=== PATIENT | female | born 1995 | race Caucasian/White ===

== ENCOUNTER 2018-01-08 18:07 | Emergency (ER) | payer BC, SELFPAY ==
[2018-01-08 18:16] VITALS: BP 126/82; PULSE 74; RESP 15; TEMP 36.4; O2SAT 100; BMI 23.0
--- NOTE | 2018-01-08 18:17 | ED_ITS ---
HPI - Chest Pain General Chief Complaint: Chest Pain Stated Complaint: HEART HURTING Time Seen by Provider: 01/08/18 18:16 Source: patient Limitations: no limitations History of Present Illness HPI narrative: Otherwise healthy 22-year-old female here for evaluation of chest pain. Patient states that approximately 1.5 hr prior to arrival here in the emergency department she had a sudden onset of midsternal chest pain. Stated was sharp. Came on suddenly. States that she felt like she had to go to the bathroom (urinate) which she did do after the onset of the pain. She states that during that time she felt like the pain ?took over my body ?she states that she never lost consciousness. Was never lightheaded. Did have some shortness of breath during that time. No palpitations. Walked out to the living room where her friend was and told her friend that she needed to come to the emergency department. Patient states that during her ride to the emergency department her symptoms resolved. Related Data Allergies Allergy/AdvReac Type Severity Reaction Status Date / Time amoxicillin [AMOXICILLIN] Allergy Mild RASH Unverified 12/09/17 11:58 Penicillins [PENICILLINS] Allergy Unknown Unverified 12/09/17 11:58 Review of Systems Constitutional Denies chills, Denies fever(s), Denies lethargy and Denies weakness Cardiovascular Reports chest pain, Denies diaphoresis, Denies syncope, Denies rapid heart rate , Denies edema, Denies irregular heart rhythm, Denies lightheadedness, Denies palpitations, Reports dyspnea, Denies dyspnea on exertion and Denies orthopnea Respiratory Denies cough, Reports pain on inspiration, Denies pain with cough, Reports dyspnea, Denies dyspnea on exertion and Denies wheezing Gastrointestinal Gastrointestinal: Denies abdominal pain, Denies change in bowel habits, Denies diarrhea, Denies nausea and Denies vomiting Musculoskeletal Denies back pain, Denies muscle weakness, Denies numbness and Denies tingling Integumentary/Breasts Denies pruritus, Denies erythema, Denies rash and Denies wounds Neurologic Denies syncope, Denies numbness, Denies tingling and Denies weakness Endocrine Denies palpitations Hematologic/Lymphatic Denies easy bruising Allergic/Immunologic Denies wheezing COUNTS INCLUDE 234 BEDS AT THE [facility] Social History Smoking Status: Never smoker Exam Const General: cooperative and well developed Nutritional Appearance: well nourished Orientation: alert, awake, oriented x3 and not confused Chest Chest: normal inspection of the chest and No rash Other: Patient with reproducible chest pain lower sternum left side between the ribs. Improves that she moved laterally. Non-existent as you moved to the right. No pain superior and inferior to this point Resp Effort & Inspection: normal respiratory effort, able to speak in complete sentences, no respiratory distress and no use of accessory muscles Auscultation: clear to auscultation bilaterally, no rales, no rhonchi and no wheezes Cardio Rate: regular rate Rhythm: regular rhythm Heart Sounds: no click, no gallops, no murmurs and no rubs Pulses: normal peripheral pulses GI Inspection: non-distended Palpation: soft, no hepatosplenomegaly, No guarding, No pulsatile mass and No tender Auscultation: normal bowel sounds Skin General: no rashes or lesions noted, No jaundice and No petechiae Neuro General: alert, oriented x3, gait normal and no focal motor deficits Speech: speech normal Motor: strength 5/5 throughout Sensory Exam: no sensory deficits noted Extrem General: full ROM, no clubbing, cyanosis or edema, no pedal edema and no calf tenderness MDM - Chest Pain MDM Narrative Medical decision making narrative: EKG unremarkable. Chest x-ray unremarkable. I was able to reproduce the pain that brought her here to the emergency department by palpation of her anterior chest. This was at her lower left sternal border in between the lower ribs that attached here. Pain improves as you move superior inferior to the right at this point. Also improved that she moved more laterally. Her symptoms are not consistent with ACS. Not consistent with PE. Will hold on further workup for now. I suspect that she had a spasm of the intercostal muscles. I discussed this with the patient. Friends and family were at bedside. She expressed understanding. She was given return precautions. Imaging Data Chest x-ray: Radiologist's impression: PROCEDURE: XR CHEST 2V INDICATIONS: 22 year-old female with chest pain. TECHNIQUE: 2 views of the chest were acquired. COMPARISON: [facility], , ABDOMEN ACUTE SERIES, 04/22/2007, 1:04. FINDINGS: Surgical changes and devices: Left upper quadrant abdominal surgical clips are again noted. Lungs and pleura: No pleural effusions or pneumothorax. Lungs are clear. Mediastinum: Mediastinal contours are normal. Heart size is normal. Bones and chest wall: No suspicious bony abnormalities. Soft tissues appear unremarkable. IMPRESSION: No acute cardiopulmonary disease. Dictated by: El Kennedy M.D. on 01/08/2018 at 18:44 ECG Data Attestation: I personally reviewed and interpreted this ECG as follows: Prior ECG tracings: not available for review Interpretation: Time 1811 hr Sinus rhythm Ventricular rate 80 for Normal axis Normal intervals Normal QRS Normal QTC No ST T wave changes Course Orders Ordered: ED Orders 01/08/18 18:17 XR chest 2V Stat 01/08/18 18:18 EKG-12 Lead Stat Last Vital Signs Temp 97.5 F L 01/08/18 18:16 Pulse 74 01/08/18 18:16 Resp 15 01/08/18 18:16 BP 126/82 H 01/08/18 18:16 Pulse Ox 100 01/08/18 18:16 Discharge Plan Departure Patient Disposition: Home, Self-Care Clinical Impression: Anterior chest wall pain Instructions: DI for Atypical Chest Pain Activity Restrictions/Additional Instructions: Recommend that you contact your primary care doctor for a follow-up. Return to the emergency department for any new or worsening symptoms
[2018-01-08 19:00] VITALS: BP 126/79; PULSE 71; RESP 14; O2SAT 99
[2018-01-08 19:41] VITALS: BP 122/82; PULSE 70; RESP 17; O2SAT 100
== END 2018-01-08 19:42 | disposition home or self-care (01) ==
PROVIDERS: Emergency Provider Emergency Medicine
DX: R07.89 Other chest pain (principal)
CPT/HCPCS: 36591; 71046; 93005; 99282; 99284

== ENCOUNTER → 2019-09-15 13:38 | Outpatient (CLI) | payer BC, SELFPAY ==
[2019-09-15 15:30] LABS: Appearance Urine UA SL CLOUDY; Bilirubin Urine UA NEGATIVE (NEGATIVE); Color Urine UA YELLOW; Glucose Urine UA NEGATIVE (Negative); Ketones Urine UA TRACE (NEGATIVE); Leukocyte Esterase Urine UA 1+ (NEGATIVE); Nitrite Urine UA NEGATIVE (Negative); Occult Blood Urine UA NEGATIVE (Negative); Protein Urine UA NEGATIVE (Negative); Specific Gravity Urine UA 1.025 (1.000-1.035); Urobilinogen Urine UA 0.2 E.U./dL (0.2)
[2019-09-15 15:38] LABS: Add Manual Diff / Slide Review NO; Bacteria Urine Many (>30); Basophils Absolute Auto 100 /uL (0-100); Basophils Percent Auto 0.6 % (0-2); Culture Indicated Urine Cult Not Indicated; Eosinophils Absolute Auto 100 /uL (0-450); Eosinophils Percent Auto 0.9 % (2-4); Hematocrit 40.9 % (36-46); Hemoglobin 13.9 g/dL (12.0-16.0); Lymphocytes Absolute Auto 1700 /uL (1100-4500); Lymphocytes Percent Auto 12.9 % (25-40); Mean Corpuscular HGB Conc 33.9 % (30-36); Mean Corpuscular Hemoglobin 31.3 PG (26-34); Mean Corpuscular Volume 92.3 fL (80-100); Monocytes Absolute Auto 1000 /uL (0-900); Monocytes Percent Auto 7.8 % (3-14); Neutrophils Absolute Auto 10000 /uL (1500-7000); Neutrophils Percent Auto 77.8 % (50-75); Platelet Count 288 X10^3/uL (150-400); RBC Urine 0-1/HPF (0-5/HPF); Red Blood Cell Count 4.43 X10^6/uL (4.0-5.2); Red Cell Distribution Width 13.9 % (11.6-14.8); Squamous Epithelial Cell Urine 1-5 /HPF (0-5/HPF); Transitional Epi Cells Urine 1-5/HPF (0-5/HPF); Urine Comments CX ALREADY ORDERED; WBC Urine 10-30/HPF (0-5/HPF); White Blood Cell Count 12.9 X10^3/uL (4.5-11.0); pH Urine UA 5.5 (4.5-8.0)
[2019-09-15 16:12] LABS: Rubella Antibody IgG 25.4 IU/mL (>15)
[2019-09-15 16:19] LABS: Hepatitis B Surface Antigen NEGATIVE s/c (NEGATIVE)
[2019-09-15 16:28] LABS: HIV 1 & 2 Ab/Ag 4th Gen Combo NEGATIVE (NEGATIVE)
[2019-09-15 16:42] LABS: Hep C Virus Ab w/Reflex Quant NEGATIVE s/c (NEGATIVE)
[2019-09-17 20:38] LABS: RPR Screen Nonreactive (Nonreactive)
== END ==
PROVIDERS: Visit Provider Specialist
DX: Z34.01 Encounter for supervision of normal first pregnancy, first trimester (principal)
CPT/HCPCS: 36415; 80055; 81003; 81015; 86787; 86803; 86850; 86900; 86901; 87077; 87086; 87186; 87389

== ENCOUNTER → 2019-11-18 08:19 | Outpatient (CLI) | payer BC, OTHER, MEDICAID, SELFPAY ==
[2019-11-22 02:12] LABS: AFP, Serum 32.6 ng/mL (.); Calc Gestational Age Ultrasound (.); Estriol, Free 2.35 ng/mL (.); Inhibin A, Dimeric 163.14 pg/mL (.); Inhibin A, MoM 0.94 (.); Maternal Ethnicity Caucasian (.); Maternal Weight 142 lbs (.); Number of Fetuses No (.); OSBR Risk 1 IN 10000 (.); Results Report (.); Test Results *Screen Negative* (.); hCG, MoM 0.47 (.); hCG, Serum 13033 mIU/mL (.)
== END ==
PROVIDERS: PCP Specialist; Referring Provider Obstetrics & Gynecology; Visit Provider Obstetrics & Gynecology
DX: Z34.02 Encounter for supervision of normal first pregnancy, second trimester (principal); Z3A.18 18 weeks gestation of pregnancy
CPT/HCPCS: 36415; 82105; 82677; 84702; 86336

== ENCOUNTER → 2019-11-29 14:07 | Outpatient (CLI) | payer BC, OTHER, MEDICAID, SELFPAY ==
--- NOTE | 2019-11-29 14:08 | DI.US.S_ITS ---
PROCEDURE: US OB >= 14 WEEKS FETUS INDICATIONS: ANATOMY OUTSIDE/PRIOR DATING DATA: Last menstrual period (LMP): 07/11/19. LMP-based estimated date of delivery (MARTHA): 04/17/20. First dating scan (date and location): 09/23/19. Estimated date of delivery (MARTHA) from first dating scan: 04/13/20. TECHNIQUE: Real-time scanning was performed of the fetus, with image documentation and biometric measurements. Endovaginal scanning: Not performed COMPARISON: None. FINDINGS: General: A single living intrauterine gestation is present. Presentation: Breech Placenta: Placental position is anterior, without previa. Amniotic fluid index: 18.1 cm, normal range is 5-24 cm. heart rate: 145 beats per minute. Maternal cervical canal: 3.1 cm long. Normal lower limit is 2.5 cm. biometrics: Biparietal diameter: 4.6 cm, 19 weeks 6 days Head circumference: 17.9 cm, 20 weeks, 2 days Abdominal circumference: 16 cm, 21 weeks, one day Femur length: 3.1 cm, 19 weeks, 5 days Estimated gestational age from initial scan: 20 weeks, 4 days. Composite gestational age from present scan: 20 weeks, 2 days Estimated weight and percentile: 354 g, 38% Measurement variability for biometric dating: +/- 7 days from 14 weeks to 15 weeks 6 days gestation, +/- 10 days from 16 weeks to 21 weeks 6 days gestation, +/- 2 weeks from 22 weeks to 27 weeks 6 days gestation, +/- 3 weeks for 28 weeks gestation or later. weight reference: 4500 g or EFW >90/95% is considered macrosomia or large for gestational age. EFW <10% is small for gestational age. EFW 5% or less is considered intra-uterine growth restriction. Anatomic survey: Neuro: Ventricles are non-dilated at less than 10 mm. Cisterna magna is normal at 3-11 mm. Cerebellum is normal in size and morphology. Nuchal skin fold: Normal at less than 6 mm between 14-21 weeks gestational age. Face: Nose and lips, facial profile are normal. Spine: No evidence for spina bifida. Heart: 4-chambered heart is present, with normal ventricular outflow tracts. Diaphragm: Diaphragm is intact. Stomach: Left-sided stomach is present. Kidneys: No hydronephrosis. Normal is less than 5 mm in 2nd trimester, less than 7 mm in 3rd trimester. Cord: 3-vessel cord has orthotopic insertion. Bladder: Normal in size. Extremities: All 4 extremities identified. IMPRESSION: 1. Single live intrauterine with fetus in breech presentation. Normal growth. Normal amount of amniotic fluid. 2. Normal anatomic survey. Dictated by: Marbin Latif M.D. on 11/29/2019 at 15:49 Approved by: Marbin Latif M.D. on 11/29/2019 at 16:24
== END ==
PROVIDERS: Referring Provider Specialist; Visit Provider Specialist
DX: Z34.02 Encounter for supervision of normal first pregnancy, second trimester (principal); Z3A.20 20 weeks gestation of pregnancy
CPT/HCPCS: 76811

== ENCOUNTER → 2020-01-04 14:17 | Outpatient (CLI) | payer BC, OTHER, MEDICAID, SELFPAY | PROVIDERS: Visit Provider Specialist | DX: Z34.02 Encounter for supervision of normal first pregnancy, second trimester (principal) | CPT/HCPCS: 87086 ==

== ENCOUNTER → 2020-01-04 14:27 | Outpatient (CLI) | payer BC, OTHER, MEDICAID, SELFPAY ==
[2020-01-04 17:37] LABS: GTT (PREG) 1 Hour PP 50gm Dose 154 mg/dL (76-139)
== END ==
PROVIDERS: Referring Provider Specialist; Visit Provider Specialist
DX: O26.899 Other specified pregnancy related conditions, unspecified trimester (principal); Z67.91 Unspecified blood type, Rh negative
CPT/HCPCS: 36415; 82950; 85014; 85018; 86850; 87086

== ENCOUNTER → 2020-01-16 08:27 | Outpatient (CLI) | payer BC, OTHER, MEDICAID, SELFPAY ==
[2020-01-16 09:55] LABS: Glucose Fasting Gestational 82 mg/dL (76-95)
[2020-01-16 11:27] LABS: Glucose 2 Hour Gest 108 mg/dL (76-155)
[2020-01-16 11:52] LABS: Glucose Tol Interp,Gestational INTERPRETATION
[2020-01-16 12:19] LABS: Glucose 3 Hour Gest 115 mg/dL (76-140)
[2020-01-16 16:53] LABS: Glucose 1 Hour Gest 134 mg/dL (76-180)
== END ==
PROVIDERS: PCP Specialist; Referring Provider Specialist; Visit Provider Specialist
DX: Z34.02 Encounter for supervision of normal first pregnancy, second trimester (principal); Z3A.25 25 weeks gestation of pregnancy
CPT/HCPCS: 36415; 82951; 82952

== ENCOUNTER → 2020-03-01 11:46 | Outpatient (CLI) | payer BC, OTHER, MEDICAID, SELFPAY ==
[2020-03-01 13:14] LABS: BUN Creatinine Ratio 13.3 (6-22); Blood Urea Nitrogen 8 mg/dL (7-17); Estimated Glomerular Filt Rate > 60.0 mL/min (>60)
== END ==
PROVIDERS: PCP Specialist; Referring Provider Specialist; Visit Provider Specialist
DX: Z90.5 Acquired absence of kidney (principal)
CPT/HCPCS: 36415; 82565; 84520

== ENCOUNTER → 2020-03-21 15:00 | Outpatient (CLI) | payer BC, OTHER, MEDICAID, SELFPAY ==
[2020-03-22 11:35] LABS: Strep Grp B PCR NEG for Grp B Strep
== END ==
PROVIDERS: PCP Specialist; Visit Provider Specialist
DX: Z34.03 Encounter for supervision of normal first pregnancy, third trimester (principal); Z3A.36 36 weeks gestation of pregnancy
CPT/HCPCS: 87653

== ENCOUNTER → 2020-03-28 11:15 | Outpatient (CLI) | payer BC, OTHER, MEDICAID, SELFPAY | PROVIDERS: PCP Specialist; Visit Provider Specialist | DX: Z34.03 Encounter for supervision of normal first pregnancy, third trimester (principal) | CPT/HCPCS: 87077; 87086 ==

== ENCOUNTER 2020-04-11 00:19 | Inpatient (IN) | payer BC, OTHER, MEDICAID, SELFPAY ==
[2020-04-11] MEDS: LACTATED RINGERS 1,000 ML 100 ML IV ×2 (00:40→02:30)
[2020-04-11] MEDS: FENT 2MCG/ML BUPIV 0.125% EPI 200 MCG/100 ML PLAST..BAG 12 MCG EPIDURAL (01:30)
[2020-04-11 02:05] LABS: Add Manual Diff / Slide Review NO; Basophils Absolute Auto 100 /uL (0-100); Basophils Percent Auto 1.1 % (0-2); Eosinophils Absolute Auto 100 /uL (0-450); Eosinophils Percent Auto 1.1 % (2-4); Hematocrit 37.7 % (36-46); Hemoglobin 12.7 g/dL (12.0-16.0); Lymphocytes Absolute Auto 2300 /uL (1100-4500); Lymphocytes Percent Auto 18.4 % (25-40); Mean Corpuscular HGB Conc 33.7 % (30-36); Mean Corpuscular Hemoglobin 31.7 PG (26-34); Mean Corpuscular Volume 94.1 fL (80-100); Monocytes Absolute Auto 1000 /uL (0-900); Monocytes Percent Auto 8.1 % (3-14); Neutrophils Absolute Auto 8700 /uL (1500-7000); Neutrophils Percent Auto 71.3 % (50-75); Platelet Count 249 X10^3/uL (150-400); White Blood Cell Count 12.2 X10^3/uL (4.5-11.0)
[2020-04-11 02:48] LABS: COVID19 -Nasal RAPID Negative (Negative)
[2020-04-11 02:51] VITALS: BP 141/91
--- NOTE | 2020-04-11 07:25 | PM.OBHP.1 ---
OB HPI Date/Time Date of admission: 04/11/20 Date Patient Seen: 04/11/20 Time Patient Seen: 07:25 History of Present Condition Chief complaint: EVALUATION OF LABOR : 1 Para: 0 Estimated Date of Delivery: 04/17/20 Estimated Gestational Age (weeks): 39 Narrative: Miladis Garcia is a 24 year old female admitted in active labor History of Present care: good care, initiated at week # (10), number of visits (11) and pounds weight gain (42) Dating criteria: LMP confirmed by 1st trimester US Ultrasounds: normal mid trimester US Medical complications: genitourinary (h/o nephrectomy) Preadmission Labs Blood type: A (-) negative -: Antibody screen: negative, GBS status: negative, HBsAG: negative, HIV: negative and RPR/VDLR: negative -: Rubella: immune Quad screen: Normal 3 hr GTT: 1 hr (134), 2 hr (108) and 3 hr (115) Fasting blood glucose: 82 Evaluation Evaluation Baseline heart rate: 140 Variability: Average (6-10) monitor accelerations: Present monitor decelerations: Early Contraction Frequency (minutes): 3 Uterine Contraction Intensity: Strong/Firm Category of Tracing: Reactive Cervical dilation (cm): 10 Cervical effacement (%): 100 station: -1 Laboratory results: Laboratory Tests 04/11/20 04/11/20 04/11/20 00:35 00:35 00:35 WBC 12.2 H RBC 4.00 Hgb 12.7 Hct 37.7 MCV 94.1 MCH 31.7 MCHC 33.7 RDW 13.0 Plt Count 249 Neut % (Auto) 71.3 Lymph % (Auto) 18.4 L [place]uce % (Auto) 8.1 Eos % (Auto) 1.1 L Baso % (Auto) 1.1 Neut # (Auto) 8700 H Lymph # (Auto) 2300 [place] # (Auto) 1000 H Eos # (Auto) 100 Baso # (Auto) 100 COVID-19 PCR Negative Blood Type A Negative Antibody Screen Negative PFSH Medical History (Updated 04/11/20 @ 08:45 by Paty Wade MD) Anxiety (Acute) Headache (Inactive ~2011) Migraines (Acute ~2011) UTI (urinary tract infection) (Acute) Surgical History (Updated 02/27/20 @ 11:31 by Paty Wade MD) Anesthesia (Resolved) History of appendectomy (Acute ~1999) History of mandibular surgery (Acute ~2011) History of nephrectomy, left (Acute ~2005) Family History (Updated 09/15/19 @ 12:[address] RN) Mother Hypertension Father Hypertension Hyperlipidemia Grandmother Lung cancer Grandfather History of open heart surgery Social History marital status: unmarried,living together (will be when baby arrives ) pets and animals: Yes (dogs and horses) education level: college (second year in Chemistry) 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[employer] ) current occupational exposures/hazards: No special rayne needs: No Smoking Status: Never smoker second hand exposure: No substance use type: does not use Meds Home Medications and Allergies Home Medications Medication Instructions Recorded Confirmed Type prenat.vits,gregorio,[id number] 1 tab PO DAILY 09/15/19 04/11/20 History Double Electric breast Pump and See Rx Instructions .ROUTE 04/11/20 04/11/20 History Supplies .COMPLEX PRN Allergies Allergy/AdvReac Type Severity Reaction Status Date / Time Penicillins [PENICILLINS] Allergy Intermediate Rash Verified 04/11/20 02:50 amoxicillin [AMOXICILLIN] Allergy Mild RASH Verified 04/11/20 02:50 Review of Systems Review of Systems Narrative: Pt with SROM clear fluid, no headache,scotomata, epigastric pain ROS: Yes All systems reviewed with the patient and are negative except as otherwise documented Exam Vital Signs (past 8 hours): Blood pressure 129/69, pulse of 92 patient is afebrile- 04/11/20 02:51 Blood Pressure 141/91 H Narrative Exam Narrative: HEENT exam within normal limits. Lungs are clear to auscultation percussion. Heart is regular rate and rhythm no S3-S4 murmurs. Abdomen is gravid. Fetus is vertex. Extremities without edema and nontender Objective Labs Result Diagrams: 04/11/20 00:35 Labs: Laboratory Results - last 24 hr 04/11/20 04/11/20 04/11/20 00:35 00:35 00:35 WBC 12.2 H RBC 4.00 Hgb 12.7 Hct 37.7 MCV 94.1 MCH 31.7 MCHC 33.7 RDW 13.0 Plt Count 249 Neut % (Auto) 71.3 Lymph % (Auto) 18.4 L Luce % (Auto) 8.1 Eos % (Auto) 1.1 L Baso % (Auto) 1.1 Neut # (Auto) 8700 H Lymph # (Auto) 2300 Luce # (Auto) 1000 H Eos # (Auto) 100 Baso # (Auto) 100 COVID-19 PCR Negative Blood Type A Negative Antibody Screen Negative Assessment and Plan Assessment and Plan Assessment and Plan narrative: Term in active labor. Patient received epidural for pain control. Anticipate vaginal delivery.
[2020-04-11] MEDS: OXYTOCIN 10 UNIT/ML VIAL 20 UNIT (08:10)
--- NOTE | 2020-04-11 08:53 | PM.OBPRVD ---
Labor & Delivery Delivery date: 04/11/20 Intrapartal events: None Delivery monitor: external FHT and external uterine Route of delivery: L&D Laceration Description: None Estimated blood loss (mL): 200 Anesthesia type: Epidural Narrative: Patient arrived on Labor and delivery with spontaneous rupture membranes in active labor. She progressed normally in labor. heart tones category 1 to category 2 throughout labor. Patient delivered spontaneously, over an intact perineum. The viable female infant was placed on maternal abdomen. After the cord stopped pulsating the cord was clamped, cut, and cord bloods obtained. The placenta delivered spontaneously, intact, with 3 vessels. There were no cervical, vaginal, or perineal tears. Both infant mother doing well. Baby 1: Infant gender: Female Presentation: vertex position: Right Occiput Anterior Placenta delivery description: Spontaneous cord vessel description: 3 Vessels score (1 min): 8 score (5 min): 9 Plan for aftercare: Routine post vaginal delivery care
[2020-04-11] MEDS: LANOLIN OINT 7 GM 1 APPLIC TOP (19:45)
[2020-04-12] MEDS: IBUPROFEN 600 MG TABLET PO ×2 (01:05→10:50)
[2020-04-12 07:01] LABS: Add Manual Diff / Slide Review YES; Hematocrit 32.7 % (36-46); Hemoglobin 11.4 g/dL (12.0-16.0); Mean Corpuscular HGB Conc 34.7 % (30-36); Mean Corpuscular Hemoglobin 32.6 PG (26-34); Platelet Count 191 X10^3/uL (150-400); Red Blood Cell Count 3.48 X10^6/uL (4.0-5.2); Red Cell Distribution Width 12.9 % (11.6-14.8); White Blood Cell Count 14.4 X10^3/uL (4.5-11.0)
[2020-04-12 07:14] LABS: Neutrophils Absolute Manual 10512 /uL (3000-5900); Total Cells Counted 100
[2020-04-12 07:15] LABS: RBC Morphology Normal Morphology
--- NOTE | 2020-04-12 08:59 | PM.OBDS.1 ---
Discharge Providers Provider Date of admission: 04/11/20 00:19 Discharge Date: 04/12/20 Primary care physician: Paty Wade MD Consults: 04/11/20 00:31 Consult to Anesthesiology Urgent Comment: Consulting Provider: Anesthesiologist Reason for consultation: giovannaral Has provider been notified: No 04/12/20 08:46 Consult to [facility] Routine Comment: Discharge provider: Paty Wade MD Summary Hospital Course Date Patient Seen: 04/12/20 Time Patient Seen: 07:30 Procedures: Epidural catheter, spontaneous vaginal delivery Hospital Course: Patient arrived on Labor and delivery in active labor. She received an epidural catheter for pain control. She had spontaneous vaginal delivery with no tears. She is ambulatory and tolerating regular diet. Pain is under control. Peripartum Data Infant Delivery Method: Natural Vaginal Laceration Description: None Procedures: Epidural catheter, spontaneous vaginal delivery complications: none 1: Gender: Female Disposition of : home Discharge Diagnosis (1) Vaginal delivery: Status: Acute Status at Discharge Cognitive/behavioral status at discharge: oriented Functional status at discharge: independent ambulation Overall status at discharge: patient is progressing back to baseline Time Spent with Patient Time attestation: Total time spent providing and/or coordinating discharge services: Time spent: Less than 30 minutes Objective Labs Result Diagrams: 04/12/20 06:30 Labs: Laboratory Results - last 24 hr 04/12/20 04/12/20 06:30 06:30 WBC 14.4 H RBC 3.48 L Hgb 11.4 L Hct 32.7 L MCV 94.0 MCH 32.6 MCHC 34.7 RDW 12.9 Plt Count 191 Neut % (Auto) Not Reportable Lymph % (Auto) Not Reportable [place] % (Auto) Not Reportable Eos % (Auto) Not Reportable Baso % (Auto) Not Reportable Lymph # (Auto) Not Reportable [place] # (Auto) Not Reportable Baso # (Auto) Not Reportable Total Counted 100 Seg Neutrophils % 69.0 Band Neutrophils % 4.0 Lymphocytes % (Manual) 20.0 L Monocytes % (Manual) 6.0 Metamyelocytes % 1.0 H Neutrophils # (Manual) 68871 H RBC Morphology Normal morphology Maternal Bleed Negative Exam Vital Signs (past 8 hours): Blood pressure 136/79, pulse of 80 PID, temperature 97.8? Narrative Exam Narrative: Abdomen is soft, nontender. Uterus is firm, at U -1, nontender. Mild lochia. Extremities without edema and nontender. Patient is a negative and baby is Rh positive so she received RhoGAM, patient received the Tdap in the 3rd trimester. She is rubella immune Discharge Plan Discharge Plan Patient Disposition: Home Discharge orders & Medications Prescriptions: Continued prenat.vits,gregorio,[id number] Tablet 1 tab PO DAILY RF: 0 Double Electric breast Pump and Supplies kit See Rx Instructions .ROUTE .COMPLEX PRN (Reason: patient) RF: 0 Follow up/Referrals: Paty Wade MD [Primary Care Provider] - Diet/Activity/Treatments Diet: Regular Activity: Nothing in vagina for 4 weeks Skin/Wound/Dressing Care Report to your healthcare provider any signs of infection, such as:: chills, fever and increased pain Discharge Data Primary Care Provider: Paty Wade
[2020-04-12 11:06] VITALS: BP 141/91; PULSE 88; RESP 18; TEMP 36.9
[2020-04-12] MEDS: RHO(D) IMMUNE GLOBULIN 1,500 UNIT SYRINGE 1500 UNIT IM (12:25)
== END 2020-04-12 12:30 | disposition home or self-care (01) | DRG 807 ==
PROVIDERS: Admitting Provider Specialist; PCP Specialist; Referring Provider Specialist; Visit Provider Specialist
DX: O80 Encounter for full-term uncomplicated delivery (principal); Z37.0 Single live birth; Z3A.39 39 weeks gestation of pregnancy
CPT/HCPCS: 01967; 59050; 59400; 85025; 85461; 86850; 86900; 86901; 87635; G0379; J2590; J2790